=== PATIENT | female | born 1930 | race American Indian/Alaskan Native ===

== ENCOUNTER 2016-09-08 17:16 | Emergency (ER) | payer MEDICARE, OTHER ==
--- NOTE | 2016-09-08 18:22 | Cat Scan Report ---
FINAL REPORT EXAM: CT HEAD/BRAIN WO CON HISTORY: Fall, lac to forehead TECHNIQUE: Contiguous axial images of the head were obtained without the use of intravenous contrast. PRIORS: None. FINDINGS: The cerebral hemispheres are without focal lesions. There is no evidence of acute infarct or intracranial hemorrhage. There is no mass lesion or mass effect. There are no abnormal extra-axial fluid collections. The ventricles and sulci are prominent consistent with generalized loss of brain substance, appropriate for age. There is deep white matter lucency consistent with chronic microvascular ischemic disease. The visualized skull and orbits are unremarkable. The visualized paranasal sinuses are clear. IMPRESSION: 1. No evidence of acute infarct or intracranial hemorrhage. 2. White matter lucency consistent with chronic microvascular ischemic disease.
[2016-09-08] MEDS ORDERED: TENIVAC IM ONE (20:08)
[2016-09-08] MEDS ORDERED: XYLOCAINE 1% 20 mL INFILTRATI ONE (20:30)
[2016-09-08 21:05] LABS: Bacteria,Urine 1+ /HPF (Negative); Bilirubin,Urine NEG (Negative); Blood,Urine NEG (Negative); Ketones,Urine NEG (Negative); Leukocyte Esterase,Urine SM (Negative); Mucus,Urine FEW /HPF; Nitrite,Urine NEG (Negative); Protein,Urine <15 mg/dL mg/dL (Negative); RBC,Urine < 1.0 /HPF (0.0-6.0); Urobilinogen,Urine < 2.0 mg/dL (<2.0)
--- NOTE | 2016-09-08 21:45 | Emergency Department Report ---
ED General Adult HPI - General Chief complaint: Laceration/Recheck/Suture Stated complaint: FALL/EYE LAC Time Seen by Provider: 09/08/16 20:04 Source: patient Mode of arrival: Wheelchair Limitations: Physical Limitation - History of Present Illness Initial comments: 86-year-old female presents to the ED after a fall with laceration to the right eyebrow prior to arrival. Patient was being taken care of by the home caregiver. The family member states that the caregiver witnessed the fall and states that the patient had tripped. States that patient did not have loss of consciousness as well as no nausea, vomiting. Family members state patient behavior is normal for her. -: Sudden Location: head, face Severity scale (0 -10): 0 - Related Data Previous Rx's Medication Instructions Recorded Last Taken Type Sulfamethoxazole/Trimethoprim 1 each PO BID #10 tablet 09/08/16 Unknown Rx [Bactrim DS TAB] traMADol [Ultram 50 MG tab] 50 mg PO Q6HR PRN #10 tablet 09/08/16 Unknown Rx Allergies Allergy/AdvReac Type Severity Reaction Status Date / Time ibuprofen Allergy Unknown Verified 11/03/13 14:51 ED Review of Systems ROS: Stated complaint: FALL/EYE LAC Other details as noted in HPI Constitutional: denies: chills, fever Eyes: denies: eye pain, eye discharge, vision change ENT: denies: ear pain, throat pain Respiratory: denies: cough, shortness of breath, wheezing Cardiovascular: denies: chest pain, palpitations Endocrine: no symptoms reported Gastrointestinal: denies: abdominal pain, nausea, diarrhea Genitourinary: denies: urgency, dysuria, discharge Musculoskeletal: myalgia. denies: back pain, joint swelling, arthralgia Skin: other (laceration to right eyebrow). denies: rash, lesions Neurological: denies: headache, weakness, paresthesias Psychiatric: denies: anxiety, depression Hematological/Lymphatic: denies: easy bleeding, easy bruising ED Past Medical Hx - Past Medical History Hx Diabetes: Yes - Social History Smoking Status: Never Smoker Substance Use Type: None - Medications Home Medications: Home Medications Medication Instructions Recorded Confirmed Last Taken Type Sulfamethoxazole/Trimethoprim 1 each PO BID #10 tablet 09/08/16 Unknown Rx [Bactrim DS TAB] traMADol [Ultram 50 MG tab] 50 mg PO Q6HR PRN #10 tablet 09/08/16 Unknown Rx ED Physical Exam - General Limitations: Physical Limitation General appearance: alert, in no apparent distress - Head Head exam: Present: atraumatic, normocephalic - Eye Eye exam: Present: normal appearance - ENT ENT exam: Present: mucous membranes moist - Neck Neck exam: Present: normal inspection, tenderness (generalized. ), full ROM - Respiratory Respiratory exam: Present: normal lung sounds bilaterally. Absent: respiratory distress - Cardiovascular Cardiovascular Exam: Present: regular rate, normal rhythm. Absent: systolic murmur, diastolic murmur, rubs, gallop - GI/Abdominal GI/Abdominal exam: Present: soft, normal bowel sounds - Extremities Exam Extremities exam: Present: normal inspection - Back Exam Back exam: Present: normal inspection - Neurological Exam Neurological exam: Present: alert, oriented X3 - Psychiatric Psychiatric exam: Present: normal affect, normal mood. Absent: depressed, agitated, anxious, flat affect, manic - Skin Skin exam: Present: warm, dry, intact, normal color. Absent: rash ED Course Vital Signs 09/08/16 09/08/16 09/08/16 17:26 18:39 18:40 Temperature 98.0 F 97.8 F Pulse Rate 76 69 Respiratory 18 16 16 Rate Blood Pressure 156/74 Blood Pressure 149/65 [Right] O2 Sat by Pulse 98 99 99 Oximetry 09/08/16 23:12 Temperature Pulse Rate 65 Respiratory 16 Rate Blood Pressure Blood Pressure 101/68 [Right] O2 Sat by Pulse 97 Oximetry - Procedure Description Procedures done: Laceration is 4 cm over the right eyebrow area. Betadine used to cleanse the area. 60 mL normal saline used to clean the area. One percent lidocaine used to anesthetize. 5-0 Prolene used 2 close the wound. 5 sutures were placed. A full closure. Patient tolerated procedure well. ED Medical Decision Making - Lab Data Vital Signs 09/08/16 09/08/16 09/08/16 17:26 18:39 18:40 Temperature 98.0 F 97.8 F Pulse Rate 76 69 Respiratory 18 16 16 Rate Blood Pressure 156/74 Blood Pressure 149/65 [Right] O2 Sat by Pulse 98 99 99 Oximetry - Radiology Data Radiology results: report reviewed - Medical Decision Making Patient's CT of the head and cerviccal is negative for any acute findings. Patient is behaving normally according to her family member. Patient is rotating her neck without difficulty. Smiling. Does not appear distressed. Critical care attestation.: If time is entered above; I have spent that time in minutes in the direct care of this critically ill patient, excluding procedure time. ED Disposition Disposition: DISCHARGED TO HOME OR SELFCARE Is pt being admited?: No Does the pt Need Aspirin: No Condition: Good Instructions: Laceration (ED) Additional Instructions: take medication as prescribed. keep wound clean and dry. follow up in about 5- 7 days for suture removal. Prescriptions: Sulfamethoxazole/Trimethoprim [Bactrim DS TAB] 1 each PO BID #10 tablet traMADol [Ultram 50 MG tab] 50 mg PO Q6HR PRN #10 tablet PRN Reason: Pain Referrals: PRIMARY CARE, [Primary Care Provider] - 3-5 Days Forms: Work/School Release Form(ED) Time of Disposition: 22:46
--- NOTE | 2016-09-08 22:16 | Cat Scan Report ---
FINAL REPORT EXAM: CT CERVICAL SPINE WO CON HISTORY: fall TECHNIQUE: Helical axial CT imaging of the cervical spine. Images are reconstructed in the sagittal and coronal planes. PRIORS: None. FINDINGS: The vertebral bodies are normal in height. There is no evidence of fracture or subluxation. There is diffuse spondylosis with multiple anterior syndesmophytes. There is C2-3 views. There is multilevel degenerative facet disease there is atherosclerotic calcification in the carotid bulbs. The paraspinous soft tissues are unremarkable. IMPRESSION: No evidence of acute fracture or subluxation. Diffuse cervical spondylosis and facet disease
[2016-09-08 23:13] VITALS: BP 101/68
== END 2016-09-08 23:12 | disposition home or self-care (01) ==
LOC: ED 17:16
DX: S01.81XA Laceration without foreign body of other part of head, initial encounter (principal); E11.9 Type 2 diabetes mellitus without complications; Z88.8 Allergy status to other drugs, medicaments and biological substances; W19.XXXA Unspecified fall, initial encounter; Y93.89 Activity, other specified; Y99.9 Unspecified external cause status; Y92.89 Other specified places as the place of occurrence of the external cause
CPT/HCPCS: 70450; 72125; 81001; 82962; 90471; 90714; 99284